=== PATIENT | male | born 1955 | race Caucasian/White ===

== ENCOUNTER → 2021-06-21 | Outpatient (CLI) | payer BC ==
[~2021-06-21] MED LIST: AMLO1CAP31; CATHETER FLUSH 10 ML SYR IV PRN; DICL75TA2; PROP60CA
--- NOTE | 2021-06-21 13:10 | Diagnostic Imaging Report ---
INDICATION: Diarrhea and right upper quadrant pain. Patient was admitted for 5.3 mCi technetium 99 M Choletec intravenously and imaging over the abdomen was performed. After 60 minutes patient ingested 8 ounces of Ensure and the gallbladder ejection fraction was calculated. There is homogeneous uptake of activity by the liver with prompt excretion of activity into the gallbladder and common duct. There is normal passage of activity into the small bowel. There is a small amount of gastric uptake as well. Gallbladder ejection fraction is low at 19%. IMPRESSION: 1. Patent cystic duct and common bile duct. 2. Low gallbladder ejection fraction of 19%. 3. Mild gastric bile reflux. Dictated by: Dictated on workstation # [id number]
== END ==
LOC: CARD 11:00
PROVIDERS: ATTEND Nurse Practitioner
DX: K21.9 Gastro-esophageal reflux disease without esophagitis (principal); R19.7 Diarrhea, unspecified
CPT/HCPCS: 78227